=== PATIENT | male | born 1950 | race American Indian/Alaskan Native ===

== ENCOUNTER 2019-03-15 16:27 | Emergency (ER) | payer MEDICARE ==
--- NOTE | 2019-03-15 18:00 | Emergency Department Report ---
- General Chief complaint: Wound/Laceration Stated complaint: RT HAND AND RT HIP Time Seen by Provider: 03/15/19 16:55 Source: EMS Mode of arrival: Stretcher Limitations: Language Barrier, Physical Limitation - History of Present Illness Initial comments: 68 yo M presents to ED for evaluation of wounds to right hand and hip. Pt sent by nurse at [facility] complaint: lesion -: unknown Location: RUE, RLE Severity: mild - Related Data Allergies Allergy/AdvReac Type Severity Reaction Status Date / Time Unable to Assess Allergy Unverified 03/16/19 01:16 Abscess Boil HPI - HPI Chief Complaint: Wound/Laceration Stated Complaint: RT HAND AND RT HIP Time Seen by Provider: 03/15/19 16:55 Allergies/Adverse Reactions: Allergies Allergy/AdvReac Type Severity Reaction Status Date / Time Unable to Assess Allergy Unverified 03/16/19 01:16 ED Review of Systems ROS: Stated complaint: RT HAND AND RT HIP Other details as noted in HPI Comment: Unobtainable due to pts medical conditions ED Past Medical Hx - Past Medical History Hx Hypertension: Yes Additional medical history: stroke (right side deficit), schizophrenia - Social History Smoking Status: Never Smoker Substance Use Type: None ED Physical Exam - General Limitations: Language Barrier, Physical Limitation General appearance: alert, in no apparent distress - Head Head exam: Present: atraumatic, normocephalic - Eye Eye exam: Present: normal appearance, PERRL, EOMI - ENT ENT exam: Present: mucous membranes moist - Neck Neck exam: Present: normal inspection - Respiratory Respiratory exam: Present: normal lung sounds bilaterally - Cardiovascular Cardiovascular Exam: Present: normal rhythm, bradycardia - GI/Abdominal GI/Abdominal exam: Present: distended - Extremities Exam Extremities exam: Present: other (healing abrasion to dorsum of right hand; helaing abrasions to right hip; no erythema or purulent discharge) - Psychiatric Psychiatric exam: Present: normal affect, normal mood - Skin Skin exam: Present: warm, dry, abrasion ED Course Vital Signs 03/15/19 03/15/19 03/15/19 16:48 16:56 17:00 Temperature 98.6 F Pulse Rate 53 L Respiratory 19 16 Rate Blood Pressure 128/78 Blood Pressure 128/78 [Left] O2 Sat by Pulse 97 100 Oximetry 03/15/19 03/15/19 03/15/19 17:16 17:30 17:51 Temperature Pulse Rate Respiratory Rate Blood Pressure Blood Pressure [Left] O2 Sat by Pulse 96 99 86 Oximetry 03/15/19 03/15/19 03/15/19 18:00 18:15 18:30 Temperature Pulse Rate Respiratory Rate Blood Pressure 121/80 119/75 124/78 Blood Pressure [Left] O2 Sat by Pulse Oximetry 03/15/19 03/15/19 03/16/19 18:45 19:30 01:00 Temperature 98.8 F Pulse Rate 60 76 Respiratory 12 15 Rate Blood Pressure 123/79 Blood Pressure 153/85 123/82 [Left] O2 Sat by Pulse 95 100 97 Oximetry 03/16/19 07:00 Temperature Pulse Rate 60 Respiratory 11 L Rate Blood Pressure Blood Pressure 132/82 [Left] O2 Sat by Pulse 100 Oximetry ED Medical Decision Making - Medical Decision Making Wounds do not appear infected. Appear to be healing abrasions. No further intervention necessary. Pt was ordered to be discharged, however, RN informed be that pt's caregiver at personal long term states she is no onger able to care for him, b/c he is "declining." Will obtain case management consult in the AM. Critical care attestation.: If time is entered above; I have spent that time in minutes in the direct care of this critically ill patient, excluding procedure time. ED Disposition Clinical Impression: Abrasion of right hand, Abrasion of right hip Disposition: DC-01 TO HOME OR SELFCARE Is pt being admited?: No Condition: Stable Instructions: Abrasion (ED) Referrals: PRIMARY CAREMD [Referring] - as needed CHILTON EMY JIMÉNEZ MD [Primary Care Provider] - as needed Time of Disposition: 17:56
[2019-03-16 12:57] VITALS: BP 125/90
== END 2019-03-16 12:57 | disposition home or self-care (01) ==
LOC: ED 16:27
DX: S60.511A Abrasion of right hand, initial encounter (principal); S70.211A Abrasion, right hip, initial encounter; I10 Essential (primary) hypertension; F31.9 Bipolar disorder, unspecified; X58.XXXA Exposure to other specified factors, initial encounter; Y93.89 Activity, other specified; Y92.89 Other specified places as the place of occurrence of the external cause; Y99.8 Other external cause status